=== PATIENT | female | born 2000 | race Caucasian/White ===

== ENCOUNTER 2023-07-06 08:57 | Emergency (ER) | payer MEDICAID, OTHER ==
[2023-07-06 09:18] VITALS: BP 130/79; PULSE 96
[2023-07-06] MEDS ORDERED: cefTRIAXone 1 GM Vial IM ONE (09:31)
[2023-07-06] MEDS ORDERED: cefTRIAXone 1 GM, Lidocaine 1% 2.1 ML IM ONE ×2 (09:45)
== END 2023-07-06 09:57 | disposition home or self-care (01) ==
LOC: JP.ED 08:57
DX: K04.7 Periapical abscess without sinus (principal)
CPT/HCPCS: 96372; 99283; J0696; 99282